=== PATIENT | male | born 1960 | race Two or more races ===

== ENCOUNTER 2020-10-21 22:34 | Emergency (ER) | payer OTHER ==
[~2020-10-21] VITALS: Ht 182.9 cm; Wt 96.0 kg
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
[2020-10-21] MEDS ORDERED: SODIUM CHLORIDE 0.9% 1,000ML IVBOLUS ONE (23:00)
[2020-10-21 23:09] LABS: BASOPHILS % (AUTO) 1 % (0-1); EOSINOPHILS % (AUTO) 5 % (1-7); LYMPHOCYTES % (AUTO) 39 % (22-44); MEAN CORPUSCULAR HGB CONC 34.5 g/dL (33.2-36.2); MEAN PLATELET VOLUME 7.7 fL (7.4-10.4); MONOCYTES % (AUTO) 11 % (2-9); NEUTROPHILS % (AUTO) 44 % (42-75); PLATELET COUNT 199 x10^3/uL (130-400); RED BLOOD COUNT 4.28 x10^6/uL (4.38-5.82); RED CELL DISTRIBUTION WIDTH 12.9 % (9.4-14.8)
[2020-10-21 23:12] LABS: MD NO
[2020-10-21 23:16] LABS: ALBUMIN 3.7 g/dL (3.4-5.0); ANION GAP 8 mmol/L (5-15); CALCIUM 8.4 mg/dL (8.5-10.1); CHLORIDE 109 mmol/L (98-107); CREATININE 1.05 mg/dL (0.7-1.3)
--- NOTE | 2020-10-21 23:16 | NUR ---
PT RESTING IN [facility]. DAUGHTER BEDSIDE. LOLA
[2020-10-21 23:20] LABS: TROPONIN I < 0.015 ng/mL (0.000-0.045)
[2020-10-22 00:25] VITALS: BP 116/71
[2020-10-22] MEDS ORDERED: SODIUM CHLORIDE 0.9% 1,000ML IVBOLUS ONE (00:30)
== END 2020-10-22 00:33 | disposition home or self-care (01) ==
LOC: ED 23:52
DX: R55 Syncope and collapse (principal); E86.0 Dehydration; E86.9 Volume depletion, unspecified; R00.1 Bradycardia, unspecified; R07.9 Chest pain, unspecified; F17.200 Nicotine dependence, unspecified, uncomplicated; I10 Essential (primary) hypertension; E78.5 Hyperlipidemia, unspecified
CPT/HCPCS: 36415; 71045; 80048; 82040; 84484; 85025; 85379; 93005; 96360; 99285; J7030